=== PATIENT | male | born 1990 | race Caucasian/White ===

== ENCOUNTER 2019-02-16 10:20 | Emergency (ER) | payer MEDICAID ==
[2019-02-16] MEDS ORDERED: Lidocaine 2% Viscous Solution 15 ML Cup PO ONE (10:21)
[2019-02-16] MEDS ORDERED: Benzocaine 20% Topical Spray UD MUCMEM ONE (10:21)
--- NOTE | 2019-02-16 10:23 | EDM.PDOC ---
ED HPI GENERAL MEDICAL PROBLEM - General Chief Complaint: ENT Problem Stated Complaint: TOOTHACHE Time Seen by Provider: 02/16/19 10:21 Source of Information: Reports: Patient History Limitations: Reports: No Limitations - History of Present Illness INITIAL COMMENTS - FREE TEXT/NARRATIVE: HISTORY AND PHYSICAL: History of present illness: Patient is a 28-year-old male presenting to the emergency room for complaints of "dental pain". Patient states he's had this dental pain going on for approximately one month, however has increased within the last week. Patient denies having a dentist or being evaluated by a dentist, however he states he does have an appointment with Dr. Faith on March 03. He was informed to keep this appointment and to follow-up with Dr. Faith. He states he is having pain "in my face and my jaw". He does rate the pain in his teeth at an 8 out of 10, describing it as "throbbing". He has a headache approximately for one week, "which is unusual, so that is why I came in". Patient does have subjective fever and chills, with slight nausea and intermittent vomiting. He states he has tried Excedrin without relief. Denies any aggravating factors. He does smoke cigarettes. Patient denies any change in vision, syncope or near syncope. Denies any chest pain, back pain, shortness of breath or cough. Denies any abdominal pain, nausea, vomiting, diarrhea, constipation or dysuria. Has not noted any blood in urine or stool. Patient has been eating and drinking appropriately. Review of systems: As per history of present illness and below otherwise all systems reviewed and negative. Past medical history: As per history of present illness and as reviewed below otherwise noncontributory. Surgical history: As per history of present illness and as reviewed below otherwise noncontributory. Social history: See social history for further information Family history: As per history of present illness and as reviewed below otherwise noncontributory. Physical exam: General: Patient is a well-nourished and well-developed 28-year-old male. Alert and oriented. Nontoxic in appearance and in no acute distress. Vital signs are normal and reviewed by me. HEENT: Atraumatic, normocephalic, pupils equal and reactive bilaterally, Horizontal Nystagmus noted, negative for conjunctival pallor or scleral icterus , mucous membranes moist, TMs normal bilaterally, multiple dental caries are noted throughout, no erythema or edema noted, throat clear, neck supple, nontender, trachea midline. No drooling or trismus noted. No meningeal signs. No hot potato voice noted. Lungs: Clear to auscultation, breath sounds equal bilaterally, chest nontender. Heart: S1S2, regular rate and rhythm without overt murmur Abdomen: Soft, nondistended, nontender. Skin: Intact, warm, dry. No lesions or rashes noted. Extremities: Atraumatic, moves all extremities per self without difficulty or deficits, negative for cords or calf pain. Neurovascular unremarkable. Neuro: Awake, alert, oriented. Cranial nerves II through XII unremarkable. Cerebellum unremarkable. Motor and sensory unremarkable throughout. Exam nonfocal. Diagnostics: None Therapeutics: Hurricaine spray, Viscous Lidocaine Prescription: Augmetin Tylenol #3 (#15) Impression: Dental caries Dentalgia Plan: 1. Please take the antibiotic as prescribed. 2. Tylenol and/or ibuprofen as needed for pain management. "Tooth Balls" have been given to you; apply along the gumline every 2-3 hours as needed. Do not swallow these; external use only. 3. Follow-up with a dentist for definitive care. Return to the ED as needed and as discussed. Definitive disposition and diagnosis as appropriate pending reevaluation and review of above. dental pain Pain Score (Numeric/FACES): 8 - Related Data Allergies Allergy/AdvReac Type Severity Reaction Status Date / Time No Known Allergies Allergy Verified 02/16/19 10:25 Home Meds: Home Meds . [No Known Home Meds] 02/16/19 [History] ED ROS ENT - Review of Systems Review Of Systems: ROS reveals no pertinent complaints other than HPI. ED EXAM, ENT - Physical Exam Exam: See Below (See dictation) Course - Vital Signs Last Recorded V/S: Last Vital Signs Temp 96.3 F 02/16/19 10:25 Pulse 77 02/16/19 10:25 Resp 18 02/16/19 10:25 BP 145/85 H 02/16/19 10:25 Pulse Ox 100 02/16/19 10:25 - Orders/Labs/Meds Meds: Medications Discontinued Medications Generic Name Dose Route Start Last Admin Trade Name Freq PRN Reason Stop Dose Admin Benzocaine 2 each 02/16/19 10:21 Hurricaine One 20% MUCMEM 02/16/19 10:22 ONETIME ONE Lidocaine HCl 15 ml 02/16/19 10:21 Xylocaine 2% Viscous PO 02/16/19 10:22 ONETIME ONE Departure - Departure Time of Disposition: 10:44 Disposition: Home, Self-Care 01 Clinical Impression: Dentalgia, Dental caries - Discharge Information Forms: ED Department Discharge Additional Instructions: The following information is given to patients seen in the emergency department who are being discharged to home. This information is to outline your options for follow-up care. We provide all patients seen in our emergency department with a follow-up referral. The need for follow-up, as well as the timing and circumstances, are variable depending upon the specifics of your emergency department visit. If you don't have a primary care physician on staff, we will provide you with a referral. We always advise you to contact your personal physician following an emergency department visit to inform them of the circumstance of the visit and for follow-up with them and/or the need for any referrals to a consulting specialist. The emergency department will also refer you to a specialist when appropriate. This referral assures that you have the opportunity for follow-up care with a specialist. All of these measure are taken in an effort to provide you with optimal care, which includes your follow-up. Under all circumstances we always encourage you to contact your private physician who remains a resource for coordinating your care. When calling for follow-up care, please make the office aware that this follow-up is from your recent emergency room visit. If for any reason you are refused follow-up, please contact the [facility] Emergency Department at and asked to speak to the emergency department charge nurse. [facility] [address] [place] [address] [id number] [address] [id number] 1. Please take the antibiotic as prescribed. 2. Tylenol and/or ibuprofen as needed for pain management. "Tooth Balls" have been given to you; apply along the gumline every 2-3 hours as needed. Do not swallow these; external use only. 3. Follow-up with a dentist for definitive care. Return to the ED as needed and as discussed.
== END 2019-02-16 10:55 | disposition home or self-care (01) ==
LOC: MW.ED 10:20
DX: K02.9 Dental caries, unspecified (principal)
CPT/HCPCS: 99282; A9270